=== PATIENT | male | born 1970 | race Two or more races ===

== ENCOUNTER 2019-10-22 14:42 | Emergency (ER) | payer SELFPAY ==
[~2019-10-22] VITALS: Ht 170.2 cm; Wt 95.7 kg
--- NOTE | 2019-10-22 15:05 | NUR ---
PT C/O NON-PRODUCTIVE COUGH X1 WEEK. FEVER AND ALL OVER ACHE STARTED TODAY. CONNECTED TO MONITORING. CALL LIGHT IN REACH. FRIEND AT BEDSIDE TRANSLATING. AWAITING ORDERS AT THIS TIME.
[2019-10-22] MEDS ORDERED: SODIUM CHLORIDE 0.9% 1,000ML IVBOLUS ONE (15:30)
[2019-10-22] MEDS ORDERED: ACETAMINOPHEN 500 MG TABLET PO ONE (15:30)
--- NOTE | 2019-10-22 15:38 | NUR ---
IV START. LABS DRAWN. 2 SETS BLOOD CX DRAWN AND TAKEN BY LAB. IVF RUNNING.
[2019-10-22] MEDS ORDERED: ACETAMINOPHEN 500 MG TABLET ONE (15:43)
[2019-10-22 15:45] LABS: BASOPHILS # (AUTO) 0.02 x10^3/uL (0-0.1); BASOPHILS % (AUTO) 0 % (0-1); EOSINOPHILS # (AUTO) 0.05 x10^3/uL (0-0.4); EOSINOPHILS % (AUTO) 1 % (1-7); LYMPHOCYTES # (AUTO) 0.49 x10^3/uL (1-3.4); LYMPHOCYTES % (AUTO) 7 % (22-44); MD NO; MEAN CORPUSCULAR HEMOGLOBIN 32.6 pg (27.5-34.5); MEAN CORPUSCULAR HGB CONC 33.3 g/dL (33.2-36.2); MEAN CORPUSCULAR VOLUME 97.8 fL (81-97); MONOCYTES # (AUTO) 1.03 x10^3/uL (0.2-0.8); MONOCYTES % (AUTO) 15 % (2-9); NEUTROPHILS # (AUTO) 5.45 x10^3/uL (1.8-6.8); NEUTROPHILS % (AUTO) 78 % (42-75); PLATELET COUNT 198 x10^3/uL (130-400); RED BLOOD COUNT 4.89 x10^6/uL (4.38-5.82); RED CELL DISTRIBUTION WIDTH 12.4 % (9.4-14.8)
--- NOTE | 2019-10-22 15:46 | NUR ---
ASSIST RN: PT MEDICATED FOR PAIN/FEVER PER ORDERS.
[2019-10-22 15:51] LABS: ALBUMIN 3.9 g/dL (3.4-5.0); ANION GAP 5 mmol/L (5-15); CALCIUM 8.3 mg/dL (8.5-10.1); CHLORIDE 108 mmol/L (98-107); CREATININE 1.23 mg/dL (0.7-1.3)
[2019-10-22 16:03] LABS: RAPID INFLUENZA A POSITIVE (Negative); RAPID INFLUENZA B Negative (Negative)
--- NOTE | 2019-10-22 16:06 | NUR ---
ALL RESULTS ARE BACK AT THIS TIME. CHART UP FOR RECHECK.
--- NOTE | 2019-10-22 16:30 | NUR ---
PT AMBULATED TO RESTROOM WITH STEADY GAIT. FRIEND AT BEDSIDE.
[2019-10-22 18:44] VITALS: BP 133/83
== END 2019-10-22 18:47 | disposition home or self-care (01) ==
LOC: ED 18:41
DX: J09.X2 Influenza due to identified novel influenza A virus with other respiratory manifestations (principal); J40 Bronchitis, not specified as acute or chronic; M79.10 Myalgia, unspecified site
CPT/HCPCS: 36415; 71045; 80048; 82040; 83605; 85025; 87040; 87400; 93005; 99284; J7030